=== PATIENT | female | born 1980 | race Caucasian/White ===

== ENCOUNTER 2017-04-09 21:16 | Emergency (ER) | payer SELFPAY ==
[~2017-04-09] VITALS: Ht 149.9 cm; Wt 70.5 kg
[2017-04-09 21:20] VITALS: Ht 149.9 cm; Wt 70.5 kg
[2017-04-10 00:19] LABS: ADD SCAN DIFF NO
[2017-04-10 00:24] LABS: BASOPHILS % 0.2 % (0.0-2.0); EOSINOPHILS # 0.2 10^3/ul (0.0-0.5); EOSINOPHILS % 1.6 % (0.0-7.0); HEMATOCRIT 41.2 % (37.0-47.0); HEMOGLOBIN 14.3 g/dl (12.0-16.0); LYMPHOCYTES # 3.5 10^3/ul (0.8-2.9); LYMPHOCYTES % 32.8 % (15.0-51.0); MEAN CORPUSCULAR HEMOGLOBIN 34.2 pg (29.0-33.0); MEAN CORPUSCULAR HGB CONC 34.7 g/dl (32.0-37.0); MEAN CORPUSCULAR VOLUME 98.6 fl (82.0-101.0); MEAN PLATELET VOLUME 10.5 fl (7.4-10.4); MONOCYTE # 0.9 10^3/ul (0.3-0.9); MONOCYTES % 8.8 % (0.0-11.0); NEUTROPHILS % 56.1 % (39.0-77.0); PLATELET COUNT 284 10^3/UL (140-415); RED BLOOD COUNT 4.18 10^6/ul (4.20-5.40); RED CELL DISTRIBUTION WIDTH 11.9 % (11.5-14.5); WHITE BLOOD COUNT 10.7 10^3/ul (4.8-10.8)
[2017-04-10 00:28] LABS: ADD UMIC YES; URINE BILIRUBIN (Dip) NEGATIVE (NEGATIVE); URINE BLOOD (Dip) 3+ (NEGATIVE); URINE COLOR LT. YELLOW (YELLOW); URINE GLUCOSE (Dip) NEGATIVE (NEGATIVE); URINE KETONES (Dip) NEGATIVE (NEGATIVE); URINE LEUKOCYTE ESTERASE (Dip) NEGATIVE (NEGATIVE); URINE NITRITE (Dip) NEGATIVE (NEGATIVE); URINE TOTAL PROTEIN (Dip) NEGATIVE (NEGATIVE); URINE UROBILINOGEN (Dip) 0.2 E.U./dL (0.1-1.0)
[2017-04-10 00:40] LABS: BACTERIA,URINE OCCASIONAL; MUCUS,URINE OCCASIONAL; SQUAMOUS EPITHELIAL CELL,UR OCCASIONAL
--- NOTE | 2017-04-10 01:22 | ERD ---
ER Documentation Chief Complaint Date/Time DATE: 04/10/17 TIME: 01:20 Chief Complaint vaginal bleeding x 1 day, states 1 month HPI 29-year-old female who is 4 , last menstrual period was on February because of vaginal bleeding 1 day. Patient states that she went to the clinic 3 days ago and was told that she had a positive urine test. She describes it as a moderate to heavy bleeding, cramping and clots passing. She denies dizziness, chest pain or shortness of breath. ROS All systems reviewed and are negative except as per history of present illness. Allergies Allergies: Coded Allergies: No Known Drug Allergies (Verified Allergy, Unknown, 04/09/17) PMhx/Soc Medical and Surgical Hx: pt denies Medical Hx History of Surgery: Yes (c section x3 and Umbillical hernia repair) Anesthesia Reaction: No Hx Neurological Disorder: No Hx Respiratory Disorders: No Hx Cardiac Disorders: No Hx Psychiatric Problems: No Hx Miscellaneous Medical Probl: No Hx Alcohol Use: No Hx Substance Use: No Hx Tobacco Use: No Smoking Status: Never smoker Physical Exam Vitals Vital Signs Date Time Temp Pulse Resp B/P Pulse Ox O2 Delivery O2 Flow Rate FiO2 04/09/17 21:20 97.9 105 20 129/90 99 Physical Exam General: Well-developed, well-nourished. The patient appears in no acute distress. HEENT: Head is normocephalic, atraumatic. No scleral icterus. Neck: Supple. Nontender. Lungs: Clear to auscultation. Normal air movement. Heart: Regular rate and rhythm. S1 and S2 are normal. No murmurs, gallops, or rubs. Abdomen: Soft, suprapubic tenderness, nondistended. Bowel sounds are normoactive. No rebound pain or guarding. Extremities: No clubbing or cyanosis. Normal pulses. Moving extremities x 4. No weakness. Neurologic: Alert and oriented 3. No focal deficits. Skin: Normal turgor. No rash or lesions. Result Diagram: 04/10/17 0005 Results 24 hrs Laboratory Tests Test 04/10/17 00:05 04/10/17 00:15 White Blood Count 10.710^3/ul Red Blood Count 4.1810^6/ul Hemoglobin 14.3g/dl Hematocrit 41.2% Mean Corpuscular Volume 98.6fl Mean Corpuscular Hemoglobin 34.2pg Mean Corpuscular Hemoglobin Concent 34.7g/dl Red Cell Distribution Width 11.9% Platelet Count 42813^3/UL Mean Platelet Volume 10.5fl Neutrophils % 56.1% Lymphocytes % 32.8% Monocytes % 8.8% Eosinophils % 1.6% Basophils % 0.2% Nucleated Red Blood Cells % 0.0/100WBC Neutrophils # 6.010^3/ul Lymphocytes # 3.510^3/ul Monocytes # 0.910^3/ul Eosinophils # 0.210^3/ul Basophils # 0.010^3/ul Nucleated Red Blood Cells # 0.010^3/ul Beta HCG, Quantitative 7.5mIU/ml Urine Color LT. YELLOW Urine Clarity SLIGHTLY CLOUDY Urine pH 6.0 Urine Specific [place] >=1.030 Urine Ketones NEGATIVE Urine Nitrite NEGATIVE Urine Bilirubin NEGATIVE Urine Urobilinogen 0.2 E.U./dL Urine Leukocyte Esterase NEGATIVE Urine Microscopic RBC 10-25/HPF Urine Microscopic WBC 0-2/HPF Urine Squamous Epithelial Cells OCCASIONAL Urine Bacteria OCCASIONAL Urine Mucus OCCASIONAL Urine Hemoglobin 3+ Urine Glucose NEGATIVE% Urine Total Protein NEGATIVE PROCEDURE: US OB. CLINICAL INDICATION: . Vaginal bleeding. TECHNIQUE: Multiple sonographic images of the pelvis were obtained. Transabdominal and transvaginal views of the pelvis are available for review. The images were reviewed on a PACS workstation. COMPARISON: No prior studies are available for comparison. FINDINGS: Uterus is normal size at 9 x 4.1 x 6.4 are cm. No intrauterine gestational sac , pole or heart motion is identified. The endometrium is normal thickness at10 mm. Multiple Nabothian cysts are present. There is 1.5 x 0.8 cm complex cervical probable Nabothian cyst. The ovaries are normal in size and echogenicity with normal vascular flow. Right ovary is 2.6 x 1.4 x 1.9 cm. Left ovary 2.4 x 1.1 x 1.7 cm. The adnexa are unremarkable. There is no adnexal mass. There is no free fluid. IMPRESSION: 1. No live intrauterine identified. Normal endometrium. Considerations include a missed , early intrauterine and ectopic . No adnexal mass or free fluid to suggest ectopic . 2. Cervical Nabothian cysts including a 1.5 cm diameter complex probable Nabothian cyst. RPTAT: HMVK .Duncan Tovar MD, Date Time Electronically viewed and signed by .Duncan Tovar MD, on 04/10/2017 01:56 .K/ Procedures/MDM 29-year-old female comes emergency department with vaginal bleeding, with a history of a positive urine done at the clinic 3 days ago. Patient's workup included labs and ultrasound, there is no evidence of intrauterine or adnexal masses seen today. However, her beta quantitative is quite low at 7.5 today. Likely she had a miscarriage, however I have advised her to recheck her hCG in the next 48 hours. He will be given a copy of her labs as well as the ultrasound, she is to return if she has any worsening or new symptoms. Differentials that were considered but are not limited to incomplete, versus complete versus missed , ectopic . She is hemodynamically stable, labs are normal at this time, there is no indication for RhoGam. Departure Diagnosis: Primary Impression: Vaginal bleeding Condition: AMEYA Flores PA-C April 10, 2017 01:22
--- NOTE | 2017-04-10 01:57 | RADRPT ---
PROCEDURE: US OB. CLINICAL INDICATION: . Vaginal bleeding. TECHNIQUE: Multiple sonographic images of the pelvis were obtained. Transabdominal and transvagin al views of the pelvis are available for review. The images were reviewed on a PACS workstation. COMPARISON: No prior studies are available for comparison. FINDINGS: Uterus is normal size at 9 x 4.1 x 6.4 are cm. No intrauterine gestational sac, pole or heart motion is identified. The endometrium is normal thickness at10 mm. Multiple Nabothian cysts are p resent. There is 1.5 x 0.8 cm complex cervical probable Nabothian cyst. The ovaries are normal in size and echogenicity with normal vascular flow. Right ovary is 2.6 x 1.4 x 1.9 cm. Left ovary 2.4 x 1.1 x 1.7 cm. The adnexa are unremarkable. There is no adnexal mass. There is no free fluid. IMPRESSION: 1. No live intrauterine identified. Normal endometrium. Considerations include a missed , early intrauterine and ectopic . No adnexal mass or free fluid to sug gest ectopic . 2. Cervical Nabothian cysts including a 1.5 cm diameter complex probable Nabothian cyst. RPTAT: HMVK .Duncan Tovar MD, Date Time Electronically viewed and signed by .Duncan Tovar MD, on 04/10/2017 01:56 .K/
[2017-04-10 02:16] VITALS: BP 115/70; PULSE 94; RESP 16
== END 2017-04-10 02:17 | disposition home or self-care (01) ==
LOC: FTE 21:16
DX: O20.9 Hemorrhage in early pregnancy, unspecified (principal); Z3A.01 Less than 8 weeks gestation of pregnancy
CPT/HCPCS: 36415; 76801; 76817; 81001; 81003; 84702; 85025; 86900; 86901